=== PATIENT | female | born 1930 | race Caucasian/White ===

== ENCOUNTER 2021-12-10 13:17 | Emergency (ER) | payer MEDICARE ==
[~2021-12-10] VITALS: Ht 157.5 cm; Wt 77.1 kg
[2021-12-10 13:24] VITALS: BP 163/84
[2021-12-10 13:43] LABS: BASOPHILS % (AUTO) 0.4 % (0.0-2.0); EOSINOPHILS # (AUTO) 0.1 K/uL (0-0.4); EOSINOPHILS % (AUTO) 0.9 % (0.0-4.0); HEMOGLOBIN 12.2 g/dL (12.0-16.0); LYMPHOCYTES # (AUTO) 1.2 K/uL (2.5-16.5); LYMPHOCYTES % (AUTO) 18.3 % (20.5-51.1); MEAN CORPUSCULAR HEMOGLOBIN 29 pg (27-31); MEAN CORPUSCULAR HGB CONC 32 g/dL (33-37); MEAN CORPUSCULAR VOLUME 90.6 fL (80-94); MONOCYTES # (AUTO) 0.6 K/uL (0.8-1.0); MONOCYTES % (AUTO) 8.5 % (1.7-9.3); NEUTROPHILS # (AUTO) 4.9 K/uL (1.8-7.7); NEUTROPHILS % (AUTO) 71.9 % (42.2-75.2); PLATELET COUNT (AUTO) 170 K/uL (140-450); RED CELL DISTRIBUTION WIDTH 13.8 % (11.6-13.7); WHITE BLOOD COUNT (AUTO) 6.8 K/uL (4.8-10.8)
[2021-12-10 14:05] LABS: ALBUMIN 2.6 g/dL (3.4-5.0); ANION GAP 10.5 (8-16); ASPARTATE AMINOTRANSFERASE 22 U/L (15-37); CARBON DIOXIDE 32.4 mmol/L (21-32); CHLORIDE 103 mmol/L (98-107); CREATININE 1.6 mg/dL (0.6-1.3); GLUCOSE 187 mg/dL (74-106); POTASSIUM 4.9 mmol/L (3.5-5.1); SODIUM SERUM 141 mmol/L (136-145); TOTAL BILIRUBIN 0.2 mg/dL (0.0-1.0); UREA NITROGEN, BLOOD 29 mg/dL (7-18)
[2021-12-10] MEDS ORDERED: cefTRIAXone 1,000 MG in DEXT 5% MINI-BAG PLUS 50 ML IV ONE (14:15)
--- NOTE | 2021-12-10 14:30 | NUR ---
pt bib als run from home c/o sob. on arrival pt tachypneic speaking two to three word sentences. on home 02 at 5L, pt states worsening sob since this am. saturation 97% on 5l nc at thsi time. 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 pending er md concepcion.
[2021-12-10] MEDS ORDERED: FUROSEMIDE 40 MG/4 ML VIAL IVP ONE (14:40)
[2021-12-10] MEDS ORDERED: cefTRIAXone 1,000 MG VIAL ONE (15:14)
--- NOTE | 2021-12-10 17:00 | NUR ---
pt output 500ml, reports improvement in breathing. pending [facility]
--- NOTE | 2021-12-10 18:06 | NUR ---
UA SENT TO LAB
[2021-12-10 18:11] LABS: APPEARANCE,URINE CLEAR (CLEAR); BILIRUBIN,URINE NEGATIVE (NEGATIVE); BLOOD, URINE NEGATIVE (NEGATIVE); LEUKOCYTE ESTERASE ,URINE TRACE (NEGATIVE); NITRITE, URINE NEGATIVE (NEGATIVE); PH,URINE 5.5 (5.0-9.0); UGLUCOSE NEGATIVE (NEGATIVE)
[2021-12-10 18:23] LABS: COLOR,URINE STRAW (YELLOW)
[2021-12-10 18:24] LABS: RBC,URINE NONE SEEN /HPF (0-5); WBC,URINE 0-5 /HPF (0-5)
--- NOTE | 2021-12-10 19:17 | NUR ---
recieved report from shanita quiñones
--- NOTE | 2021-12-10 20:10 | NUR ---
PT CLEANED AND LINENS CHANGED, PT AND FAMILY UPDATED ON TRANSFER STATUS, AND ALL QUESTIONS ANSWERED. NO WOUNDS NOTED, PT TOLERATED WELL WITH SOME SOB FROM MOVEMENT.
--- NOTE | 2021-12-10 20:33 | NUR ---
Kiko rodriguez in ED - 12/10/21 at 4 by [email or web address] ATTEMPTED TO CALL [place], TRANSFERED TO AMBULANCE RECIEVING NURSE; NO ANSWER.
--- NOTE | 2021-12-10 20:34 | NUR ---
ATTEMPTED TO CALL [place] FOR TRANSFER OF CARE REPORT. TRANSFERED TO AMBULANCE RECIEVING NURSE; NO ANSWER.
--- NOTE | 2021-12-10 20:49 | NUR ---
SPOKE WITH DIANE LUCERO AT [facility], RECIEVED REPORT FOR PT.
--- NOTE | 2021-12-10 20:49 | NUR ---
Patient to be transferred to [facility]. Is being transferred due to WH[facility] REQUEST. Receiving facility has accepting physician and available space. ER physician has signed transfer form. Patient or responsible libertarian has agreed to transfer and signed form. Patient belongings inventoried and will be sent with patient. Copy of nursing notes, lab reports, EKG, Physicians Orders and X-rays to be sent with patient. Report called to DIAEN LUCERO at receiving facility. [facility] ambulance service has been called for transfer. ETA is 30MINUTES.
--- NOTE | 2021-12-10 22:39 | NUR ---
[facility] LOADING PT FOR TRANSFER AT THIS TIME.
[2021-12-10 22:40] VITALS: BP 135/57
== END 2021-12-10 22:40 | disposition short-term general hospital (02) ==
LOC: MED 13:17
DX: I50.9 Heart failure, unspecified (principal); Z20.822 Contact with and (suspected) exposure to COVID-19; M25.511 Pain in right shoulder; J44.9 Chronic obstructive pulmonary disease, unspecified; F03.90 Unspecified dementia, unspecified severity, without behavioral disturbance, psychotic disturbance, mood disturbance, and anxiety; Z87.448 Personal history of other diseases of urinary system; Z98.890 Other specified postprocedural states
CPT/HCPCS: 36415; 71045; 80053; 81001; 83605; 83880; 84484; 85025; 87040; 87086; 87426; 93005; 96365; 96375; 99285; J0696; J1940; Q0092